=== PATIENT | male | born 1970 | race Caucasian/White ===

== ENCOUNTER 2017-07-26 01:11 | Emergency (ER) | payer MEDICAID ==
[~2017-07-26] VITALS: Ht 177.8 cm; Wt 88.5 kg
[2017-07-26 01:12] VITALS: BP 146/94
== END 2017-07-26 03:41 | disposition home or self-care (01) ==
LOC: ED 03:34
DX: L03.115 Cellulitis of right lower limb (principal); G89.11 Acute pain due to trauma; F17.210 Nicotine dependence, cigarettes, uncomplicated; Z86.14 Personal history of Methicillin resistant Staphylococcus aureus infection
CPT/HCPCS: 99284

== ENCOUNTER 2017-09-14 00:27 | Emergency (ER) | payer MEDICAID ==
[~2017-09-14] VITALS: Ht 177.8 cm; Wt 88.5 kg
[2017-09-14 00:29] VITALS: BP 163/115
[2017-09-14] MEDS ORDERED: DIPH,PERTUSS(ACELL),TET VAC/PF 0.5 ML IM-VACC ONE ×2 (00:55→01:00)
== END 2017-09-14 01:12 | disposition home or self-care (01) ==
LOC: ED 00:50
DX: M25.561 Pain in right knee (principal); L03.115 Cellulitis of right lower limb; M71.161 Other infective bursitis, right knee; F17.200 Nicotine dependence, unspecified, uncomplicated
CPT/HCPCS: 90471; 90715

== ENCOUNTER 2018-06-26 16:53 | Emergency (ER) | payer MEDICAID ==
[~2018-06-26] VITALS: Ht 175.3 cm; Wt 94.0 kg
[2018-06-26 16:55] VITALS: BP 177/107
== END 2018-06-26 17:31 | disposition home or self-care (01) ==
LOC: ED 17:25
DX: K02.9 Dental caries, unspecified (principal); K04.7 Periapical abscess without sinus; F17.200 Nicotine dependence, unspecified, uncomplicated
CPT/HCPCS: 99283

== ENCOUNTER 2018-06-28 09:06 | Emergency (ER) | payer MEDICAID ==
[~2018-06-28] VITALS: Ht 175.3 cm; Wt 93.8 kg
--- NOTE | 2018-06-28 09:40 | NUR ---
PT WALK IN TO ED FOR DENTAL PAIN, DIAGNOSED WITH ABCESS 2D AGO AND HAS APPT WITH DENTIST TOMORROW FOR REMOVAL. PT HAS LEFT FACIAL SWELLING WITH SOME ASSOCIATED ORBITAL EDEMA
[2018-06-28] MEDS ORDERED: ONDANSETRON ODT 4 MG PO ONE (10:00)
[2018-06-28] MEDS ORDERED: OXYcodone/APAP 5/325MG TABLET PO ONE (10:00)
--- NOTE | 2018-06-28 11:57 | NUR ---
PT RESTING IN GURNEY, BP LOWER AFTER CLONIDINE.
[2018-06-28 11:59] VITALS: BP 140/100
== END 2018-06-28 12:29 | disposition home or self-care (01) ==
LOC: ED 09:49
DX: K02.9 Dental caries, unspecified (principal); I10 Essential (primary) hypertension; F15.20 Other stimulant dependence, uncomplicated
CPT/HCPCS: 93005; 99283